=== PATIENT | female | born 1930 | race Caucasian/White ===

== ENCOUNTER 2019-06-29 20:03 | Observation (INO) | payer OTHER, BC ==
[~2019-06-29] VITALS: Ht 167.6 cm; Wt 70.8 kg
[2019-06-29 20:26] LABS: ABSOLUTE NEUTROPHILS 4.3 thou/uL (1.4-8.2); EOSINOPHILS 2.9 % (0.0-3.0); HEMATOCRIT 38.8 % (37.0-47.0); HEMOGLOBIN 12.7 gm/dL (12.0-15.0); LYMPHOCYTES 20.5 % (24.0-44.0); MCH 29.6 pg (26.0-34.0); MCHC 32.7 g/dL (28.0-37.0); MCV 90.5 fL (80.0-100.0); MONOCYTES 11.5 % (1.0-8.0); PLATELET COUNT 250 thou/uL (150-400); POLYS 64.1 % (36.0-66.0); RBC 4.29 mil/uL (4.20-5.00); RDW 14.6 % (10.5-14.5); WBC 6.7 thou/uL (4.0-11.0)
[2019-06-29 20:29] LABS: ANION GAP 6 mmol/L (7-16); BUN 12 mg/dL (7-18); CALCIUM 9.6 mg/dL (8.5-10.1); CHLORIDE 101 mmol/L (98-107); CO2 28 mmol/L (21-32); CREATININE 0.8 mg/dL (0.6-1.0); GLUCOSE 113 mg/dL (74-106); POTASSIUM 3.9 mmol/L (3.5-5.1); SODIUM 135 mmol/L (136-145)
[2019-06-29] MEDS ORDERED: CHILDREN'S ASPI81 M1 PO (20:31)
[2019-06-29] MEDS ORDERED: ARICEPT10 M1 PO (20:31)
[2019-06-29] MEDS ORDERED: NORVASC 2.5 MG2.5 M1 PO (20:32)
[2019-06-29] MEDS ORDERED: NAMENDA 10 MG T10 MG PO (20:32)
[2019-06-29] MEDS ORDERED: PRAVASTATIN SOD40 MG PO (20:32)
[2019-06-29] MEDS ORDERED: SYNTHROID75 MCG PO (20:32)
[2019-06-29] MEDS ORDERED: TIMOLOL MALEATE5 M2 OPHTHALMIC (20:33)
[2019-06-29] MEDS ORDERED: TRAVATAN Z5 ML EA. EYE (20:33)
[2019-06-29 20:38] LABS: MAGNESIUM 2.1 mg/dL (1.8-2.4); TROPONIN-I <0.06 ng/mL (<0.06)
[2019-06-29 20:40] LABS: APTT 25.3 Seconds (24.5-32.8); PROTIME 10.6 Seconds (9.3-11.4)
[2019-06-29 20:45] LABS: URINE BILIRUBIN NEGATIVE (Negative); URINE BLOOD NEGATIVE (Negative); URINE CLARITY CLEAR; URINE COLOR YELLOW; URINE GLUCOSE-RANDOM* NEGATIVE (Negative); URINE KETONES NEGATIVE (Negative); URINE NITRITE-REFLEX NEGATIVE (Negative); URINE PROTEIN (DIPSTICK) NEGATIVE (Negative); URINE SPECIFIC GRAVITY 1.015 (1.005-1.035); URINE UROBILINOGEN 0.2 E.U./dl (0.2-1.0)
[2019-06-29 20:46] LABS: URINE LEUKOCYTES-REFLEX 3+ (Negative)
[2019-06-29 21:19] LABS: URINE WBC-REFLEX >25 Many /HPF (0-5)
[2019-06-29 21:20] LABS: BACTERIA-REFLEX 1-9 Few /HPF (None Seen); CASTS None Seen /LPF (None Seen); CRYSTALS None Seen /LPF (None Seen); SQUAMOUS 0-3 Few /LPF (0-3); URINE RBC None Seen /HPF (0-2)
[2019-06-29 22:51] VITALS: BP 154/52
[2019-06-29 23:30] VITALS: BP 151/52
[2019-06-30 03:27] VITALS: BP 147/51
--- NOTE | 2019-06-30 03:46 | NUR ---
PATIENT ARRIVED ON UNIT AT 2325 VIA CART ACCOMPAINIED BY SON AND ED PERSONEL. PATIENT ALERT AND ORIENTED X PERSON AND TIME. VERY CONFUSED AND FORGETFUL, TRIES TO GET UP AND PULLS TELE LEADS OFF. EASILY REDIRECTED. GETS UP TO BSC WITH SBA AND GATEBELT. DENIES PAIN. SLEPT MOST OF NIGHT.
[2019-06-30 04:00] VITALS: BP 138/79
[2019-06-30 07:21] VITALS: BP 132/49
--- NOTE | 2019-06-30 08:05 | EKG ---
[place] [address] [facility] [place] [address] ELECTROCARDIOGRAM REPORT Name: JULIANA SANDOVAL Room #: 360-P [facility] M.R.#: [id number] Admission: 06/29/19 Attend Phys: Cal Grande Discharge: Date of : 34 Report #: [id number] THIS REPORT FOR: //name// [facility] ED Test Date: 2019-06-29 Test Time: 20:45:20 Pat Name: JULIANA SANDOVAL Department: Room: [facility] Gender: F Corporate Strategy Analyst: malcolm : 1930 Requested By: Elizabeth Santiago Order Number: [id number] MD: John Baez Measurements Intervals [place] Rate: 64 P: 52 SD: 153 QRS: -17 QRSD: 93 T: 91 QT: 413 QTc: 426 Interpretive Statements Sinus rhythm Voltage criteria for LVH No previous ECG available for comparison Electronically Signed On 06-30-2019 8:05:38 IT TECHNICAL SUPPORT SPECIALIST by John Baez [email or web address] <ELECTRONICALLY SIGNED> By: John Baez MD, [facility] 06/30/19 08 44 44 John Baez MD, FACC /EPI
--- NOTE | 2019-06-30 09:49 | NUR ---
ASSESSMENT: CM REVIEWED CHART AND MET WITH PT AT THE BEDSIDE ALONG WITH HER SON IVÁN. PT LIVES AT [facility]. PT USES A WALKER FOR AMBULATION. PT WAS ADMITTED FOR POSSIBLE TIA/UTI. PLANS ARE FOR PATIENT TO RETURN TO [facility] ONCE MEDICALLY STABLE. CM CONTACTED [facility] AND FAXED THEM UPDATED CLINICAL TO THEIR FAX: [phone]. PT HAS NOT HAD HH IN THE PAST. CM WILL CONTINUE TO FOLLOW TO ASSIST NEEDED.
[2019-06-30 11:19] VITALS: BP 116/52
[2019-06-30] MEDS ORDERED: NORVASC 2.5 MG2.5 M1 PO (13:11)
[2019-06-30] MEDS ORDERED: CEFUROXIME250 MG PO (13:12)
[2019-06-30 13:28] VITALS: BP 116/52
--- NOTE | 2019-06-30 14:07 | NUR ---
ON-GOING ASSESSMENT: PT HAS ORDERS TO DISCHARGE TODAY BACK TO HER [place] [facility] AT [facility]. SON WAS PRESENT TO TAKE PATIENT BACK. CM CONTACTED [facility] TO NOTIFY THEM AND FAXED D/C ORDERS AND SUMMARY. CM ASKED FOR NUMBER FOR REPORT AND THEY STATED THEY WOULD HAVE THEIR RN CALL OUR RN ONCE SHE HAD TIME AND CM PROVIDED NUMBER FOR BEDSIDE RN. PT REPORTS NO FURTHER QUESTIONS AT THIS TIME.
--- NOTE | 2019-06-30 20:00 | NUR ---
PT ALERT TO SELF ONLY, VSS, SR ON TELE. PT DENIES PAIN/SOA. PT TOLERATES MEDS AND MEALS. PT UP TO RESTROOM WITH STANDBY ASSIT. PT SON AT BEDSIDE. WILL CONTINUE TO MONITOR.
--- NOTE | 2019-07-21 09:40 | DSS ---
[facility] [place] [address] [address] [place] [address] SHORT STAY SUMMARY Name: JULIANA SANDOVAL Room #: 360-P [facility] Eloisa Foreman#: [id number] Admission: 06/29/19 Attend Phys: Cal Grande Discharge: 06/30/19 Date of : 34 Report #: [id number] THIS REPORT FOR: //name// CC: Jhon Tariq SHORT STAY SUMMARY CHIEF COMPLAINT: Slurring speech. HISTORY OF PRESENT ILLNESS: The patient is an 89-year-old female from a memory care unit. She was sent to the Emergency Room with a slurred speech. She apparently was having dinner around 1730 when she was having some slurring speech and drooling from the left side of her mouth. This was a change in her normal baseline. Staff assessed her, administered aspirin, and directed her to the Emergency Room. They did report she had a non-injury fall about 2 days ago, which she did not remember. It appears in the Emergency Room that her neurologic status was back to baseline. PAST MEDICAL HISTORY: Hypertension, senile dementia of Alzheimer's type, hypothyroidism, and dyslipidemia. PAST SURGICAL HISTORY: None. FAMILY HISTORY: Noncontributory. SOCIAL HISTORY: No chronic alcohol or tobacco use. ALLERGIES: CODEINE and ZOCOR. MEDICATIONS: Aspirin, Aricept, amlodipine, Namenda, pravastatin, and Levoxyl eyedrops. REVIEW OF SYSTEMS: Currently, she is denying any headache, trouble speaking, chest pain, shortness of breath, abdominal pain, nausea, vomiting, diarrhea, constipation, dysuria, or syncope. OBJECTIVE: VITAL SIGNS: Temperature 36.8, pulse 54, respirations 18, blood pressure 116/52, and O2 sat 95% on room air. GENERAL: She was awake and alert, in no distress, recognized her son. HEAD AND NECK: Cranial nerves intact. Speech is fluent. There was a facial symmetry. LUNGS: Clear. HEART: Regular. ABDOMEN: Soft, normoactive bowel sounds. EXTREMITIES: No edema. NEUROLOGIC: She was moving all extremities equally, 4/5 throughout. [facility] [address] [place] [address] SHORT STAY SUMMARY Name: JULIANA SANDOVAL Room #: [address] [place] [address] Kellen#: [id number] Admission: 06/29/19 Attend Phys: Cal Grande Discharge: 06/30/19 Date of : 34 Report #: [id number] HOSPITAL COURSE: She was admitted to observation status with a working diagnosis of a UTI. Clinically, it appeared that TIA was ruled out, as she was back to her normal baseline. By the time she arrived to ER, stroke screen score was only 1 at the time of admission; however, her urinalysis did reveal 3+ leukocytes AND over 25 per high power field white blood cells and bacteria. She received empiric IV Rocephin. Her other home medications were continued. I assessed her at the bedside the following day with her son. He agreed that neurologically she was back to baseline and requested early discharge back to her memory care unit to minimize the risk of confusion. There were no other plans for invasive treatment. CT head was negative and other lab data was unremarkable including chemistry, coags, and white count. DISPOSITION: She will return to her memory care unit under the care of Dr. Tariq with the diet and activity as tolerated. She will resume all home medications except decrease Norvasc to 2.5 mg a day for a relatively low blood pressure reading here and Ceftin 250 mg b.i.d. for 7 days for empiric treatment of UTI. <ELECTRONICALLY SIGNED> By: John Baum MD 07/21/19 0940 1346 1420 John Baum MD /nt
== END 2019-06-30 13:47 | disposition home or self-care (01) ==
LOC: ER 20:03 → 3W 22:39 → EROBS 22:39 → 3W 22:39
PROVIDERS: Emergency Medicine Emergency Medical Services; ADMIT Internal Medicine
DX: N39.0 Urinary tract infection, site not specified (principal); G45.9 Transient cerebral ischemic attack, unspecified; F03.90 Unspecified dementia, unspecified severity, without behavioral disturbance, psychotic disturbance, mood disturbance, and anxiety; Z79.82 Long term (current) use of aspirin; Z79.899 Other long term (current) drug therapy
CPT/HCPCS: 10879

== ENCOUNTER 2019-07-20 15:33 | Inpatient (IN) | payer OTHER, BC ==
[~2019-07-20] VITALS: Ht 157.5 cm; Wt 67.7 kg
[~2019-07-20 15:33] MED LIST: ARICEPT10 M1 PO; CEFUROXIME250 MG PO; CHILDREN'S ASPI81 M1 PO; NAMENDA 10 MG T10 MG PO; NORVASC 2.5 MG2.5 M1 PO; PRAVASTATIN SOD40 MG PO; SYNTHROID75 MCG PO; TIMOLOL MALEATE5 M2 OPHTHALMIC; TRAVATAN Z5 ML EA. EYE
[2019-07-20 15:34] VITALS: BP 135/81
[2019-07-20 15:58] LABS: HEMATOCRIT 40.7 % (37.0-47.0); HEMOGLOBIN 13.4 gm/dL (12.0-15.0); MCH 29.7 pg (26.0-34.0); MCHC 32.9 g/dL (28.0-37.0); MCV 90.3 fL (80.0-100.0); PLATELET COUNT 238 thou/uL (150-400); RDW 14.6 % (10.5-14.5); WBC 5.7 thou/uL (4.0-11.0)
[2019-07-20 16:06] LABS: CALCIUM 9.8 mg/dL (8.5-10.1); CREATININE 0.8 mg/dL (0.6-1.0); POTASSIUM 4.1 mmol/L (3.5-5.1)
[2019-07-20 16:12] LABS: APTT 26.6 Seconds (24.5-32.8); PROTIME 10.5 Seconds (9.3-11.4)
[2019-07-20 16:26] LABS: ABSOLUTE NEUTROPHILS 3.9 thou/uL (1.4-8.2); PLATELET ESTIMATE NORMAL
[2019-07-20 16:27] LABS: DIRECT BILIRUBIN 0.1 mg/dL (<0.1-0.3); TOTAL BILIRUBIN 0.4 mg/dL (<0.1-1.0); TOTAL PROTEIN 7.5 g/dL (6.4-8.2)
[2019-07-20 16:44] LABS: URINE BILIRUBIN NEGATIVE (Negative); URINE BLOOD NEGATIVE (Negative); URINE CLARITY CLEAR; URINE COLOR YELLOW; URINE GLUCOSE-RANDOM* NEGATIVE (Negative); URINE KETONES NEGATIVE (Negative); URINE LEUKOCYTES-REFLEX NEGATIVE (Negative); URINE NITRITE-REFLEX NEGATIVE (Negative); URINE PROTEIN (DIPSTICK) NEGATIVE (Negative); URINE SPECIFIC GRAVITY 1.025 (1.005-1.035); URINE UROBILINOGEN 0.2 E.U./dl (0.2-1.0)
[2019-07-20 18:12] VITALS: BP 168/61
[2019-07-20 18:32] VITALS: BP 148/115
[2019-07-20 18:55] VITALS: BP 149/58
[2019-07-21 00:19] VITALS: BP 156/66
[2019-07-21 04:22] VITALS: BP 147/52
--- NOTE | 2019-07-21 06:10 | NUR ---
Arrived from ER around 1854 accompanied by son. Able to state her name , tej and she's at the hospital. Speech is still a bit slurred per son which is not her baseline and he also reported some facial tremors. Upon arrival on the floor , no facial tremors noted though speech is still slurred. This am her speech is a lot clearer and she's able to tell me her name ,tej, Jul 2019 and it's Saturday. She didn't remember what she came in here for and verbalized she has memory problems. Bed alarm on for safety. Up with assist to commode and voided x2. Will continue to monitor.
[2019-07-21 07:46] VITALS: BP 146/54
--- NOTE | 2019-07-21 08:28 | EKG ---
[address] [address] ELECTROCARDIOGRAM REPORT Name: JULIANA SANDOVAL Room #: 354-P ADM IN M.R.#: [id number] Admission: 07/20/19 Attend Phys: Cal Grande Discharge: Date of : 34 Report #: [id number] THIS REPORT FOR: //name// [facility] ED Test Date: 2019-07-20 Test Time: 16:03:31 Pat Name: JULIANA SANDOVAL Department: Room: Gender: F Pneumatic Drum Sander: LUIS : 1930 Requested By: Morelia Chávez Order Number: [id number] MD: John Baez Measurements Intervals [place] Rate: 65 P: 56 SC: 166 QRS: -24 QRSD: 98 T: 79 QT: 444 QTc: 462 Interpretive Statements Sinus rhythm Leftward axis Compared to ECG 06/29/2019 20:45:20 No significant change was found Electronically Signed On 07-21-2019 8:27:49 SELF PROPELLED MINING MACHINE OPERATOR by John Baez [email or web address] <ELECTRONICALLY SIGNED> By: John Baez MD, [facility] 07/21/19 0827 1603 160 John Baez MD, [facility] /EPI
--- NOTE | 2019-07-21 09:31 | 2DMMODE ---
[facility] [address] [place] [address] 2 D/M-MODE ECHOCARDIOGRAM Name: JULIANA SANDOVAL Room #: 354-P ADM IN M.R.#: [id number] Admission: 07/20/19 Attend Phys: Jhon Nielsen Discharge: Date of : 34 Report #: [id number] THIS REPORT FOR: //name// APPROVED REPORT Study performed: 07/21/2019 08:26:16 EXAM: Comprehensive 2D, Doppler, and color-flow Echocardiogram Status: routine BSA: 1.69 HR: 58 bpm BP: 147/52 mmHg Rhythm: NSR Other Information Study Quality: Adequate/no RN available for bubble study. Did solo. Indications TIA. HX: HTN. Echo Enhancing Agent Indication: Rule out Shunt Agent(s) / Amount(s) Used: Agitated Saline 6 cc 2D Dimensions RVDd: 33.63 mm IVSd: 9.09 (7-11mm) LVOT Diam: 19.15 (18-24mm) LVDd: 40.64 mm PWd: 10.53 (7-11mm) LVDs: 26.57 (25-40mm) Aortic Root: 31.11 mm Volumes Left Atrial Volume (Systole) Single Plane 4CH: 30.20 mL Single Plane 2CH: 29.61 mL LA ESV Index: 19.00 mL/m2 Aortic Valve AoV Peak Travon.: 1.28 m/s AO Peak Gr.: 6.56 mmHg LVOT Max P.94 mmHg LVOT Max V: 1.22 m/s TAMMY Vmax: 2.74 cm2 [facility] [address] [place] [address] 2 D/M-MODE ECHOCARDIOGRAM Name: JULIANA SANDOVAL Room #: 354-P [facility] IN ..#: [id number] Admission: 07/20/19 Attend Phys: Jhon Nielsen Discharge: Date of : 34 Report #: [id number] Mitral Valve E/A Ratio: 0.7 MV Decel. Time: 298.68 ms MV E Max Travon.: 0.71 m/s MV A Travon.: 1.00 m/s MV PHT: 86.62 ms IVRT: 78.43 ms Pulmonary Valve PV Peak Travon.: 0.95 m/s PV Peak Gr.: 3.62 mmHg Pulmonary Vein P Vein S: 0.55 m/s P Vein A: 0.27 m/s P Vein D: 0.24 m/s P Vein A Dur.: 161.5 msec P Vein S/D Ratio: 2.29 Tricuspid Valve TR Peak Travon.: 3.09 m/s RAP Estimate: 5.00 mmHg TR Peak Gr.: 38.28 mmHg PA Pressure: 43.00 mmHg Left Ventricle The left ventricle is normal size. There is normal LV segmental wall motion. There is normal left ventricular wall thickness. Mild basal septal hypertrophy is present. Left ventricular systolic function is normal. LVEF is 65%. Mild diastolic dysfunction is present (impaired relaxation pattern). Right Ventricle The right ventricle is normal size. The right ventricular systolic function is normal. Atria The left atrium size is normal. No shunting noted with contrast bubble injection. The right atrium size is normal. Aortic Valve The aortic valve is normal in structure. Leaflets are mildly thickened. No aortic regurgitation is present. There is no aortic valvular stenosis. Mitral Valve The mitral valve is normal in structure. Mild mitral annular calcification. Trace mitral regurgitation. Tricuspid Valve [facility] [address] [place] [address] 2 D/M-MODE ECHOCARDIOGRAM Name: JULIANA SANDOVAL Room #: 354-P [facility] IN M.R.#: [id number] Admission: 07/20/19 Attend Phys: Jhon Nielsen Discharge: Date of : 34 Report #: [id number] The tricuspid valve is normal in structure. Mild to moderate tricuspid regurgitation. Estimated PAP is 40-45mmHg. Pulmonic Valve The pulmonary valve is normal in structure. Mild pulmonic regurgitation. Great Vessels The aortic root is normal in size. Ascending aorta is not well visualized. IVC is normal in size and collapses >50% with inspiration. Pericardium No pericardial effusion. <Conclusion> The left ventricle is normal size. LVEF is 65%. No shunting noted with contrast bubble injection. The aortic valve is normal in structure. Leaflets are mildly thickened. The mitral valve is normal in structure. Mild mitral annular calcification. Trace mitral regurgitation. The pulmonary valve is normal in structure. Mild pulmonic regurgitation. No pericardial effusion. <ELECTRONICALLY SIGNED> By: Padna Phillips MD 07/21/19930 0 0 Panda Phillips MD /INF
--- NOTE | 2019-07-21 13:18 | NUR ---
PT is A&OX3, PT aditted from ER for slurred speach at 07/20/19, pt's speach has improved today , pt's speach is clear, ST has seeing pt, pt starts mech soft diet and nectal liquid, pt 's MRI head results do not show stroke at this time, has seeing the pt and MRI results, pt will discharge to memory care center today.
--- NOTE | 2019-07-21 13:37 | NUR ---
ASSESSMENT: CM REVIEWED CHART AND MET WITH PATIENT AND SON AT THE BEDSIDE. PT IS FROM [facility]. PT WAS SEEN BY ATTENDING AND HAS ORDERS TO DISCHARGE BACK TO [facility] TODAY. CM CONTACTED [facility] TO NOTIFY THEM OF DISCHARGE TODAY AND THEY REPORT THEY CAN ACCEPT HER BACK. THEY REQUESTED DISCHARGE ORDERS AND CLINICAL BE FAXED TO [phone]. CM FAXED CLINICAL INFORMATION. CM PROVIDED SON WITH DOCUMENTATION TO TAKE TO FACILITY AND HE IS TRANSPORTING HER. CM PROVIDED BEDSIDE RN WITH THE NUMBER FOR REPORT. PT AND SON REPORT NO FURTHER QUESTIONS FROM CM PRIOR TO DISCHARGE.
--- NOTE | 2019-07-21 13:54 | NUR ---
RN has giving reported to the facility nurse and giving DC teaching to pt and pt's son, pt's son understands well, pt's son picks up pt to [facility] T 1350PM,
[2019-07-21 14:24] LABS: TSH 0.452 uIU/mL (0.358-3.740)
--- NOTE | 2019-07-23 10:00 | DSS ---
[facility] [address] SHORT STAY SUMMARY Name: JULIANA SANDOVAL Room #: 354-P [facility] IN M.R.#: [id number] Admission: 07/20/19 Attend Phys: Cal Grande Discharge: 07/21/19 Date of : 34 Report #: [id number] THIS REPORT FOR: //name// CC: Jhon Diop SHORT STAY SUMMARY FINAL DIAGNOSES: 1. Dysarthria. 2. Senile dementia. 3. Hypertension. HISTORY OF PRESENT ILLNESS: The patient came to the Emergency Room with slurred speech. All the details are obtained from her family. She had trouble speaking at her assisted living facility, was brought to the ER. She was hospitalized here last month for similar problems. It resolved spontaneously. She was treated for a urinary infection at that time. PAST MEDICAL HISTORY: Hypertension, glaucoma, Alzheimer's disease. PAST SURGICAL HISTORY: None. FAMILY HISTORY: Noncontributory. SOCIAL HISTORY: She lives in a memory care unit in assisted living facility. No chronic alcohol or tobacco use. ALLERGIES: CODEINE, ZOCOR. MEDICATIONS: Aricept, pravastatin, amlodipine, aspirin, memantine, timolol, Travatan eyedrops, Synthroid. REVIEW OF SYSTEMS: She is confused and denies any problems or symptoms, is not aware to her surroundings. OBJECTIVE: VITAL SIGNS: Temperature 36.4, pulse ____, respirations 16, blood pressure 146/54, O2 sat 96%. GENERAL: She is awake and alert, in no distress. HEAD AND NECK: Unremarkable. LUNGS: Clear. HEART: Regular. ABDOMEN: Soft, normoactive bowel sounds. EXTREMITIES: No edema. NEUROLOGIC: Her speech is fluent. She asks "where am I?" No obvious neurologic motor deficits. [facility] [address] [place] [address] SHORT STAY SUMMARY Name: JULIANA SANDOVAL Room #: 354-P [facility] IN .R.#: [id number] Admission: 07/20/19 Attend Phys: Cal Grande Discharge: 07/21/19 Date of : 34 Report #: [id number] HOSPITAL COURSE: She was watched overnight with stable vital signs. MRI of the brain was unremarkable. Neurology service saw her. Additional lab data including TSH and B12 are pending. They suggested a consideration for outpatient lab testing for myasthenia gravis. She had no other interval complication. DISPOSITION: She will return to her care facility with the same medications. There is no sign of infection, TIA has been ruled out. Followup in the office with Dr. Tariq. <ELECTRONICALLY SIGNED> By: John Baum MD 07/23/19 1000 1256 1307 John Baum MD /nt
== END 2019-07-21 13:59 | DRG 57 ==
LOC: ER 15:33 → 3W 18:32 → ER 18:32 → 3W 18:46 → ENTRNSPT 07-21 13:42 → EDTRNSPTSTS 07-21 13:43 → 3W 07-21 13:59
PROVIDERS: Emergency Medicine; Psychiatry & Neurology Neurology; ADMIT Internal Medicine
DX: G30.1 Alzheimer's disease with late onset (principal); F02.81 Dementia in other diseases classified elsewhere, unspecified severity, with behavioral disturbance; E78.5 Hyperlipidemia, unspecified; H53.47 Heteronymous bilateral field defects; R47.1 Dysarthria and anarthria; I10 Essential (primary) hypertension; Z79.82 Long term (current) use of aspirin; Z88.5 Allergy status to narcotic agent; Z88.8 Allergy status to other drugs, medicaments and biological substances; Z87.440 Personal history of urinary (tract) infections; Z98.42 Cataract extraction status, left eye; Z98.41 Cataract extraction status, right eye; Z79.899 Other long term (current) drug therapy
CPT/HCPCS: 10879